=== PATIENT | female | born 1965 | race Caucasian/White ===

== ENCOUNTER 2020-05-30 18:06 | Observation (INO) ==
[2020-05-30] MEDS ORDERED: ONDANSETRON INJ 2 MG/ML 2 ML VIAL IV STA (18:17)
[2020-05-30 18:45] LABS: Basophils # (auto) 0.05 K/uL (0-0.2); Basophils % (auto) 0.2 %; Hemoglobin 11.7 g/dL (12.0-16.0); Immature Granulocytes # (auto) 0.21 K/uL (0.00-0.02); Lymphocytes # (auto) 2.39 K/uL (1.2-3.4); Lymphocytes % (auto) 11.2 %; Mean Corpuscular Hemoglobin 27.3 pg (25-34); Mean Corpuscular Hgb Conc 32.5 g/dL (32-36); Mean Corpuscular Volume 84.1 fL (80-100); Mean Platelet Volume 9.6 fL (7.4-10.4); Monocytes # (auto) 1.81 K/uL (0.11-0.59); Monocytes % (auto) 8.5 %; Neutrophils # (auto) 16.94 K/uL (1.4-6.5); Neutrophils % (auto) 79.1 %; Platelet Count 446 K/uL (130-400); RDW Coefficient of Variation 16.7 % (11.5-14.5); RDW Standard Deviation 51.2 fL (36.4-46.3); Red Blood Count 4.28 M/uL (4.2-5.4)
[2020-05-30 19:01] LABS: Partial Thromboplastin Ratio 0.9; Partial Thromboplastin Time 24.5 Seconds (21.0-31.0); Prothrombin Time 10.6 Seconds (9.0-12.0)
[2020-05-30 19:02] LABS: Alanine Aminotransferase 16 U/L (12-78); Albumin Level 2.9 gm/dl (3.4-5.0); Aspartate Aminotransferase 30 U/L (15-37); BUN Creatinine Ratio 13.6 (10-20); Blood Urea Nitrogen 19 mg/dl (7-18); Carbon Dioxide 29 mmol/L (21-32); Chloride 103 mmol/L (98-107); Creatinine Clr Calc Pharmacy 67.2 ml/min; Est GFR (African American) 49.7; Est GFR (Non-African American) 42.9; Glucose 89 mg/dl (70-99); Magnesium 2.1 mg/dl (1.8-2.4); Potassium 3.2 mmol/L (3.5-5.1); Sodium 139 mmol/L (136-145)
[2020-05-30 19:13] LABS: Albumin Globulin Ratio 0.6 (0.9-2); Alkaline Phosphatase 97 U/L (45-117); Bilirubin,Total < 0.1 mg/dl (0.2-1); Globulin 4.7 gm/dl (2.5-4.0); Total Protein 7.6 gm/dl (6.4-8.2); Troponin I < 0.015 ng/ml (0-0.045)
[2020-05-30] MEDS: MoRPHine SULFATE 4 MG/ML 1 ML CARP\\VIAL IV PRN ×2 (19:18→20:53)
--- NOTE | 2020-05-30 19:24 | XRay Report ---
XR chest 1V portable HISTORY: 55 years-old Female weakness acute weakness COMPARISON: None TECHNIQUE: Portable AP view of the chest FINDINGS: Left subclavian pacer. Cardiomediastinal and hilar silhouettes are within normal limits. Mild interst itial coarsening of the lung bases, possibly on a chronic basis. No pneumothorax, pleural effusion, a irspace consolidation or overt pulmonary edema. Bones of the chest appear grossly intact. IMPRESSION: No acute process. ACT 112: Negative or not required by law. The above report was generated using voice recognition software. It may contain grammatical, syntax o r spelling errors. Electronically signed by: Adonay Van M.D. 05/30/2020 7:23 PM
--- NOTE | 2020-05-30 19:32 | XRay Report ---
XR knee LT 1 or 2V routine HISTORY: 55 years-old Female FALL acute left knee pain status post fall COMPARISON: None TECHNIQUE: 3 views of the left knee FINDINGS: Markedly limited exam secondary to positioning. Severe tricompartmental osteoarthritis. No large join t effusion, acute fracture or dislocation identified. IMPRESSION: 1. Marked limitation of the study secondary to positioning. No acute fracture identified. 2. Severe osteoarthritis. ACT 112: Negative or not required by law. The above report was generated using voice recognition software. It may contain grammatical, syntax o r spelling errors. Electronically signed by: Adonay Van M.D. 05/30/2020 7:30 PM
--- NOTE | 2020-05-30 19:33 | XRay Report ---
XR hip LT 2V w pelvis HISTORY: 55 years-old Female fALL acute pelvic and left hip pain status post fall COMPARISON: Left knee radiographs of same day TECHNIQUE: AP view the pelvis with 2 views of the left hip FINDINGS: Demineralized appearance of the bones. Mild osteoarthritis of the bilateral hips. There is an acute t ranscervical fracture of the left femur which demonstrates approximately 1 cm cortical impaction with out significant displacement. No dislocation. Pelvic basin phleboliths. IMPRESSION: Acute impacted transcervical fracture of the left femur. ACT 112: Negative or not required by law. The above report was generated using voice recognition software. It may contain grammatical, syntax o r spelling errors. Electronically signed by: Adonay Van M.D. 05/30/2020 7:32 PM
--- NOTE | 2020-05-30 20:00 | Emergency Department Note ---
Impression & Plan Closed fracture of left hip, Fall, Hypoglycemia ED Provider Note NAME: RAMON GILES AGE: 55 SEX: F : 1965 ARRIVES VIA: Ambulance INFORMANT: Patient, prehospital personnel ED PROVIDER(S): Artemio Epps DO CHIEF COMPLAINT: Hip pain HPI: The patient is a 55-year-old female who presented to the emergency department for an evaluation of hip pain. The patient states that she was walking in a parking lot when her right leg gave way and she landed onto her left side. The patient already has significant left lower extremity arthritis and has difficulty ambulating because of this. She was unable to put weight onto her left leg. 911 was called and the patient arrived via ambulance. The patient complains of significant pain in the left hip as well as left knee. She denies having any head injury or headache. She denies having any neck pain or back pain. The patient did not lose consciousness. She states the pain is moderate to severe and worsens with any movement or ambulation. She denies having any recent illnesses or fevers. She was recently admitted to the hospital and transferred because she developed respiratory failure and was positive for COVID-19. The patient has been discharged for a short period of time. ROS: See above HPI for pertinent positives & negatives. A total of 10 systems reviewed and were otherwise negative. PAST MEDICAL HISTORY: See Below PAST SURGICAL HISTORY: See Below FAMILY HISTORY: See Below SOCIAL HISTORY: See Below HOME MEDICATIONS: See Below ALLERGIES: See Below VITALS: See Below PHYSICAL EXAMINATION: GENERAL: The patient is awake and alert. The patient is very anxious appearing and appears to be uncomfortable. EYES: The conjunctivae are clear. The pupils are round and reactive. EARS, NOSE, MOUTH AND THROAT: The nose is without any evidence of any deformity. NECK: The neck is nontender and supple. RESPIRATORY: Normal respiratory effort is noted there is no evidence of wheezing rhonchi or rales CARDIOVASCULAR: Regular rate and rhythm noted there no murmurs rubs or gallops normal S1 normal S2. GASTROINTESTINAL: The abdomen is soft. Abdomen is nontender. MUSCULOSKELETAL/EXTREMITIES: The left lower extremity is shortened and flexed at the knee. The patient has pain with any range of motion testing of the left hip. There is shortening of the left leg. There is minimal internal rotation noted. SKIN: Chronic venous stasis changes are noted in both lower extremities. Skin is warm and dry. NEUROLOGIC: Patient is awake alert and oriented x3. MEDICAL DECISION MAKING: The patient is a 55-year-old female who presented to the emergency department after a fall. The patient was walking in a parking lot when she had a fall. She was not feeling well and was found to have hypoglycemia as well. The patient was found to have significant pain in her left hip. This appears to be consistent with a hip fracture that was found on x-ray. I discussed patient's laboratory and radiographic studies with her. I also discussed the x-ray with her. She was treated with IV pain medication in the emergency department. She was reevaluated multiple times. I discussed the patient's condition with the on-call [facility] hospitalist. They have agreed to evaluate the patient in the emergency department for further management and disposition. Triage Nursing notes reviewed. Prior medical records reviewed Vital Signs: reviewed and remarkable for no significant abnormalities Differential diagnosis: Fracture, subluxation, dislocation, contusion, ligamentous injury, neurovascular, compartment syndrome, rhabdomyolysis, as well as other pathologies. ER treatment provided: See below Diagnostics interpreted by me: ECG: EKG was obtained in the emergency department. My interpretation is normal sinus rhythm at 80 bpm. Anterior Q waves were noted. LVH was noted by voltage criteria. No previous tracing was available. Cardiac Monitoring: An order was placed for continuous cardiac monitoring. The monitor shows a rate of 95 bpm with sinus rhythm. Laboratory studies: As stated above and show below. Imaging studies: See below Consultation(s): Dr. Matthews was notified about the patient. He will evaluate the patient in the emergency department. Past Med/Surg History Medical History (Updated 05/30/20 @ 20:48 by Artemio Epps DO) Atrial fibrillation COVID-19 virus infection History of hypoglycemia Surgical History (Updated 05/30/20 @ 20:04 by Artemio Epps DO) History of cholecystectomy History of permanent cardiac pacemaker placement Social History Smoking Status: Never smoker Preferred Language: Tongan Feels Safe at Home: Yes Allergies Allergies Allergy/AdvReac Type Severity Reaction Status Date / Time sulfamethoxazole Allergy Severe Itching Unverified 05/30/20 19:19 [From Bactrim] trimethoprim [From Bactrim] Allergy Severe Itching Unverified 05/30/20 19:19 Home Meds Home Medications Medication Instructions Recorded Confirmed amiodarone [Pacerone] 200 mg PO QAM 05/30/20 05/30/20 bupropion HCl 150 mg PO QAM 05/30/20 05/30/20 furosemide 80 mg PO QAM 05/30/20 05/30/20 octreotide,microspheres 30 mg IM MONTHLY 05/30/20 05/30/20 [Sandostatin LAR Depot] potassium chloride 20 meq PO QAM 05/30/20 05/30/20 pramipexole 0.5 mg PO QAM 05/30/20 05/30/20 pramipexole 0.75 mg PO QPM 05/30/20 05/30/20 spironolactone 25 mg PO QAM 05/30/20 05/30/20 venlafaxine 225 mg PO QAM 05/30/20 05/30/20 Results & Data (ED) Vital Signs Vital Signs - 24 hr 05/30/20 18:17 05/30/20 19:19 Temperature 37.2 C Temperature Source Oral Pulse Rate 81 Pulse Rate [Right Finger] 87 Pulse Rhythm Regular Pulse Strength Normal Respiratory Rate 16 16 Respiratory Effort / Characteristics Non-Labored Respiratory Depth Normal Respiratory Pattern Regular Blood Pressure 115/61 Blood Pressure [Left Arm] 112/62 Blood Pressure Mean 79 Blood Pressure Mean [Left Arm] 78 Blood Pressure Position Lying Pulse Oximetry 98 96 Oxygen Delivery Method Room Air Room Air Sepsis Recent Fever Within 48 Hours No Sepsis New/Unexplained Change in Mental Status N/A Sepsis Action Taken by Nursing No Action Required Home Medications Current Medication List: was personally reviewed by me Laboratory Data Attestation: I reviewed the patient's lab results. Result diagrams: 05/30/20 18:30 05/30/20 18:30 Lab Results 05/30/20 05/30/20 05/30/20 Range/Units 18:30 18:30 18:30 WBC 21.40 H (4.8-10.8) K/uL RBC 4.28 (4.2-5.4) M/uL Hgb 11.7 L (12.0-16.0) g/dL Hct 36.0 L (37-47) % MCV 84.1 (80-100) fL MCH 27.3 (25-34) pg MCHC 32.5 (32-36) g/dL RDW Std Deviation 51.2 H (36.4-46.3) fL RDW Coeff of Samir 16.7 H (11.5-14.5) % Plt Count 446 H (130-400) K/uL MPV 9.6 (7.4-10.4) fL Immature Gran % (Auto) 1.0 % Neut % (Auto) 79.1 % Lymph % (Auto) 11.2 % [place] % (Auto) 8.5 % Eos % (Auto) 0.0 % Baso % (Auto) 0.2 % Neut # (Auto) 16.94 H (1.4-6.5) K/uL Lymph # (Auto) 2.39 (1.2-3.4) K/uL [place] # (Auto) 1.81 H (0.11-0.59) K/uL Eos # (Auto) 0.00 (0-0.5) K/uL Baso # (Auto) 0.05 (0-0.2) K/uL Immature Gran # (Auto) 0.21 H (0.00-0.02) K/uL PT 10.6 (9.0-12.0) Seconds INR 1.0 (0.9-1.1) APTT 24.5 (21.0-31.0) Seconds PTT Ratio 0.9 Sodium 139 (136-145) mmol/L Potassium 3.2 L (3.5-5.1) mmol/L Chloride 103 (98-107) mmol/L Carbon Dioxide 29 (21-32) mmol/L Anion Gap 6.0 (3-11) BUN 19 H (7-18) mg/dl Creatinine 1.39 H (0.6-1.2) mg/dl Est Cr Clr Drug Dosing 67.2 ml/min Est GFR ( Amer) 49.7 Est GFR (Non-Af Amer) 42.9 BUN/Creatinine Ratio 13.6 (10-20) Glucose 89 (70-99) mg/dl Calcium 9.0 (8.5-10.1) mg/dl Magnesium 2.1 (1.8-2.4) mg/dl Total Bilirubin < 0.1 L (0.2-1) mg/dl AST 30 (15-37) U/L ALT 16 (12-78) U/L Alkaline Phosphatase 97 (45-117) U/L Troponin I < 0.015 (0-0.045) ng/ml Total Protein 7.6 (6.4-8.2) gm/dl Albumin 2.9 L (3.4-5.0) gm/dl Globulin 4.7 H (2.5-4.0) gm/dl Albumin/Globulin Ratio 0.6 L (0.9-2) TSH 2.060 (0.300-4.500) uIu/ml COVID-19 Eval Order 05/30/20 Range/Units 20:32 WBC (4.8-10.8) K/uL RBC (4.2-5.4) M/uL Hgb (12.0-16.0) g/dL Hct (37-47) % MCV (80-100) fL MCH (25-34) pg MCHC (32-36) g/dL RDW Std Deviation (36.4-46.3) fL RDW Coeff of Samir (11.5-14.5) % Plt Count (130-400) K/uL MPV (7.4-10.4) fL Immature Gran % (Auto) % Neut % (Auto) % Lymph % (Auto) % [place] % (Auto) % Eos % (Auto) % Baso % (Auto) % Neut # (Auto) (1.4-6.5) K/uL Lymph # (Auto) (1.2-3.4) K/uL [place] # (Auto) (0.11-0.59) K/uL Eos # (Auto) (0-0.5) K/uL Baso # (Auto) (0-0.2) K/uL Immature Gran # (Auto) (0.00-0.02) K/uL PT (9.0-12.0) Seconds INR (0.9-1.1) APTT (21.0-31.0) Seconds PTT Ratio Sodium (136-145) mmol/L Potassium (3.5-5.1) mmol/L Chloride (98-107) mmol/L Carbon Dioxide (21-32) mmol/L Anion Gap (3-11) BUN (7-18) mg/dl Creatinine (0.6-1.2) mg/dl Est Cr Clr Drug Dosing ml/min Est GFR ( Amer) Est GFR (Non-Af Amer) BUN/Creatinine Ratio (10-20) Glucose (70-99) mg/dl Calcium (8.5-10.1) mg/dl Magnesium (1.8-2.4) mg/dl Total Bilirubin (0.2-1) mg/dl AST (15-37) U/L ALT (12-78) U/L Alkaline Phosphatase (45-117) U/L Troponin I (0-0.045) ng/ml Total Protein (6.4-8.2) gm/dl Albumin (3.4-5.0) gm/dl Globulin (2.5-4.0) gm/dl Albumin/Globulin Ratio (0.9-2) TSH (0.300-4.500) uIu/ml COVID-19 Eval Order CovFluRsv at [facility] Administered Medications Morphine Sulfate (Morphine Sulfate 4 Mg/Ml 1 Ml Carp\Vial) 4 mg IV Q30M PRN PRN Reason: Pain Stop: 06/13/20 18:16 Last Admin: 05/30/20 19:18 Dose: 4 mg Documented by: [id number] Discontinued Medications Ondansetron HCl (Ondansetron Inj 2 Mg/Ml 2 Ml Vial) 4 mg IV NOW STA Stop: 05/30/20 18:18 Last Admin: 05/30/20 19:18 Dose: 4 mg Documented by: [id number] Imaging Data Radiologist's Impression: Chest X-Ray 05/30/20 18:17 XR chest 1V portable HISTORY: 55 years-old Female weakness acute weakness COMPARISON: None TECHNIQUE: Portable AP view of the chest FINDINGS: Left subclavian pacer. Cardiomediastinal and hilar silhouettes are within normal limits. Mild interstitial coarsening of the lung bases, possibly on a chronic basis. No pneumothorax, pleural effusion, airspace consolidation or overt pulmonary edema. Bones of the chest appear grossly intact. IMPRESSION: No acute process. ACT 112: Negative or not required by law. The above report was generated using voice recognition software. It may contain grammatical, syntax or spelling errors. Electronically signed by: Adonay Van M.D. 05/30/2020 7:23 PM Hip/Pelvis X-Ray 05/30/20 18:17 XR hip LT 2V w pelvis HISTORY: 55 years-old Female fALL acute pelvic and left hip pain status post fall COMPARISON: Left knee radiographs of same day TECHNIQUE: AP view the pelvis with 2 views of the left hip FINDINGS: Demineralized appearance of the bones. Mild osteoarthritis of the bilateral hips. There is an acute transcervical fracture of the left femur which demonstrates approximately 1 cm cortical impaction without significant displacement. No dislocation. Pelvic basin phleboliths. IMPRESSION: Acute impacted transcervical fracture of the left femur. ACT 112: Negative or not required by law. The above report was generated using voice recognition software. It may contain grammatical, syntax or spelling errors. Electronically signed by: Adonay Van M.D. 05/30/2020 7:32 PM Knee X-Ray 05/30/20 18:17 XR knee LT 1 or 2V routine HISTORY: 55 years-old Female FALL acute left knee pain status post fall COMPARISON: None TECHNIQUE: 3 views of the left knee FINDINGS: Markedly limited exam secondary to positioning. Severe tricompartmental osteoarthritis. No large joint effusion, acute fracture or dislocation iden tified. IMPRESSION: 1. Marked limitation of the study secondary to positioning. No acute fracture identified. 2. Severe osteoarthritis. ACT 112: Negative or not required by law. The above report was generated using voice recognition software. It may contain grammatical, syntax or spelling errors. Electronically signed by: Adnoay Van M.D. 05/30/2020 7:30 PM Discharge Plan Visit Data Chief Complaint: Fall Stated Complaint: FALL, L HIP PAIN, HYPOGLYCEMIA ED Provider: Artemio Epps Discharge Problem: Closed fracture of left hip, Fall, Hypoglycemia Patient Disposition: Being Evaluated by Hospitalist Condition: Good Forms Stand Alone Forms: [facility] Prescriptions Prescriptions: No Action amiodarone [Pacerone] 200 mg tablet 200 mg PO QAM RF: 0 spironolactone 25 mg tablet 25 mg PO QAM RF: 0 potassium chloride 20 mEq tablet,ER particles/crystals 20 meq PO QAM RF: 0 furosemide 80 mg tablet 80 mg PO QAM RF: 0 bupropion HCl 150 mg tablet extended release 24 hr 150 mg PO QAM RF: 0 pramipexole 0.75 mg tablet 0.75 mg PO QPM RF: 0 venlafaxine 225 mg tablet extended release 24hr 225 mg PO QAM RF: 0 pramipexole 0.5 mg tablet 0.5 mg PO QAM RF: 0 Sandostatin LAR Depot 30 mg suspension,extended rel recon 30 mg IM MONTHLY RF: 0 Referrals Referrals: Gilbert Desai D.O. [Primary Care Provider] -
[2020-05-30 21:20] LABS: Influenza A virus by PCR Negative (Neg); Influenza B virus by PCR Negative (Neg); RSV by PCR Negative (Neg); SARS CoV2 RNA(COVID-19) InHosp NEGATIVE (Negative)
--- OUTSIDE RECORDS SUMMARY | 2020-05-30 23:16 | External Medical Summary | Continuity of Care Document ---
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 Start: 16-Jan-2015 Quantity: 270 Refills: 3 Venlafaxine HCl ER 75 MG Oral Capsule Ex tended Release 24 Hour; TAKE 1 CAPSULE DAILY. Start: 16-Jan-2015 Refills: 0 SUMAtriptan Succinate 25 MG Oral Tablet; TAKE 1 TABLET EVERY 2 HOURS NEEDED FOR MIGRAINE. MAXIMUM 8 TABLETS DAILY. Start: 17-Jan-20 15 Refills: 0 Mirapex 0.5 MG Oral Tablet; TAKE 1 TABLET 3 TIMES DAILY. Start: 16-Jan-2015 Refills: 0 SandoSTATIN LAR Depot 30 MG Intramuscula r Kit; INJECT THE CONTENTS OF 1 SYRINGE (30 MG) INTO THE MUSCLE EVERY MONTH Mara Rizzo Start: 13-Nov-2017 Quantity: 3 Refills: 3 Spironolactone 50 MG Oral Tablet; TAKE 1 TABLET TWICE DAILY. Start: 28-Jul-2016 Refills: 0 Furosemide 80 MG Oral Tablet; Take 1 tablet twice a day Start: 28-Jul-2016 Refills: 5 Ferrous Sulfate 324 (65 Fe) MG Oral Tabl et Delayed Release; Take 1 tablet twice daily Start: 28-Jul-2016 Refills: 0 Procedures Procedures not documented Immunizations Influenza On: 12-Dec-2014 Social History - Smoking Status Never smoked tobacco Plan of Treatment Planned Observations Planned Goals not documented Results No Known Results Results not documented
[2020-05-30] MEDS ORDERED: MAGNESIUM HYDROXIDE SUSP 30 ML UDC PO PRN (23:38)
[2020-05-30] MEDS ORDERED: bisacodyL 10 MG SUPP PR PRN (23:38)
[2020-05-30] MEDS ORDERED: ACETAMINOPHEN 325 MG TAB PO PRN (23:38)
[2020-05-30] MEDS ORDERED: POLYETHYLENE (MIRALAX) 17 GM PACK PO PRN (23:38)
[2020-05-30] MEDS ORDERED: NALOXONE HCL 0.4 MG/1 ML VIAL/CARP IV PRN (23:38)
[2020-05-30 23:48] LABS: Appearance Urine Cloudy (Clear); Bacteria Urine Automated 4+ (Negative); Bilirubin Urine Negative (Negative); Blood Urine 3+ (Negative); Color Urine Yellow; Glucose Urine UA Negative (Negative); Ketones Urine Negative (Negative); Leukocyte Esterase Urine 2+ (Negative); Nitrite Urine Negative (Negative); Protein Urine Trace (Negative); RBC Urine Automated >30 /hpf (0-4); Specific Gravity Urine 1.018 (1.000-1.030); Urobilinogen Urine Negative (Negative); WBC Urine Automated >30 /hpf (0-5)
[2020-05-31] MEDS: MoRPHine SULFATE 4 MG/ML 1 ML CARP\\VIAL IV PRN ×4 (00:13→13:14)
[2020-05-31] MEDS ORDERED: MICONAZOLE NITRATE POWDER 43 GM EXT PRN (00:22)
[2020-05-31] MEDS ORDERED: MoRPHine SULFATE 2 MG/ML CARP IV PRN (00:27)
--- NOTE | 2020-05-31 01:03 | History & Physical Report ---
Date of Service May 31, 2020 Assessment & Plan Admission and Anticipated Discharge Date Admission Date: May 30, 2020 55 yo F w/ pMHx. pancreatic masses s/p excision, low blood sugar, prior COVID infection, mood disorder who is presenting after a injury to her left hip found to have a fracture Left hip fracture, transcervical, 1cm cortical impaction, no significant displacement hemodynamically stable discussed with Dr. Weeks and based on patient's BMI and complexity he did not feel comfortable operating on her - may require transfer for possible procedure with a joint specialist at tertiary care vs. obtaining medical records and getting a second opinion - Hip fracture order set used - Morphine for pain control - NPO after midnight Elevated white count likely secondary to stress - continue to monitor Pancreatic mass s/p excision with low blood sugar episodes - monitor blood sugar - attempt to obtain records from PCP (HIM request placed) ? history of atrial fibrillation, not currently on blood thinner - f/u PCP record, Mood disorder - continue Bupropion Code: full Diet: NPO DVT: SCD's History of Present Illness Chief Complaint: left hip pain Primary Care Provider: Gilbert Desai Jalyn Floyd is here for left hip pain. She was standing on her right leg getting into a jeep with her left leg up when her right leg popped, shifted down and she developed pain in the left leg (hip and knee) and was not able to put weight on it. The pain was 7/10 in her knee and hip. This case was discussed with Dr. Weeks and initially he was okay proceeding with possible intervention. After he reviewed the case further he contacted me and explained that based on her unusual case and elevated BMI he did not feel comfortable with performing a surgical intervention here. He thought that she might benefit from a joint specialist at a tertiary care center. She had recently been transferred (January 23) to [facility] for pacer placement and for treatment of COVID where she was intubated. We do not have her records and she follows with Gilbert Desai who is based out of [place]. She also has a history of pancreatic masses that were excised, she did not know specifically what the mass was or the procedure done. 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 She has had episodes of low blood sugar after her pancreas masses were removed, and stated that some were still present. She has Atrial fibrillation on her problem list, she is not on any anticoagulation currently and was in NSR on EKG and regular rhythm on exam. She also brought up a history of vaginal bleeding from polyps with planned procedure in one month. We will need to get her records from her PCP to get more information on her past medical history to help direct management. Allergies Allergy/AdvReac Type Severity Reaction Status Date / Time sulfamethoxazole Allergy Severe Itching Unverified 05/31/20 09:22 [From Bactrim] trimethoprim [From Bactrim] Allergy Severe Itching Unverified 05/31/20 09:22 No Known Drug Allergies Allergy Verified 05/31/20 09:22 Home Medications Medication Instructions Recorded Confirmed Type albuterol sulfate 90 mcg/actuation 2 puff INHALATION Q6H PRN 10/01/19 10/01/19 History aerosol inhaler sumatriptan succinate 50 mg tablet See Rx Instructions PO .COMPLEX 10/01/19 10/01/19 History Sandostatin LAR Depot 30 mg IM MONTHLY 05/30/20 05/30/20 History amiodarone [Pacerone] 200 mg PO QAM 05/30/20 05/30/20 History bupropion HCl 150 mg PO QAM 05/30/20 05/30/20 History furosemide 80 mg PO QAM 05/30/20 05/30/20 History potassium chloride 20 meq PO QAM 05/30/20 05/30/20 History pramipexole 0.5 mg PO QAM 05/30/20 05/30/20 History pramipexole 0.75 mg PO QPM 05/30/20 05/30/20 History spironolactone 25 mg PO QAM 05/30/20 05/30/20 History venlafaxine 225 mg PO QAM 05/30/20 05/30/20 History Past Med/Surg History Medical History (Updated 05/31/20 @ 09:22 by Kaylee Maxwell) Abnormal thyroid function test Atrial fibrillation COVID-19 virus infection History of hypoglycemia Restless leg syndrome Surgical History (Updated 05/31/20 @ 09:22 by Kaylee Maxwell) History of cholecystectomy History of cholecystectomy History of partial pancreatectomy History of permanent cardiac pacemaker placement Family History (System 05/31/20 @ 09:22 by Kaylee Maxwell) Brother Diabetes Sister Diabetes Father Myocardial infarction Mother Dyslipidemia Social History (System 05/31/20 @ 09:22 by Kaylee Maxwell) Smoking Status: Never smoker Hx Alcohol Use: No Hx Substance Use: No Preferred Language: Albanian Communication Ability: Effective Fiscal Economist Required: No Beliefs That Will Affect Care: None Current Living Situation: Alone Current Living Situation Comment: gurdeep stay with her often, discharged from rehab 2 days ago Other Information That Helps Us Care for You: No Feels Safe at Home: Yes Safety Concerns: Feels Safe At This Time Assistive Devices: Glasses, Walker and Wheelchair Review of Systems Review of Systems: unable to obtain due to patient in severe pain. Physical Exam Constitutional: + obese and + in distress Eyes: PERRL, conjunctivae normal, anicteric sclerae ENMT: external ear and nose normal, oropharynx normal Neck: normal visual inspection Respiratory: normal respiratory effort, lungs clear to auscultation Cardiovascular: RRR, no murmur, no edema Gastrointestinal (Abdomen): normal bowel sounds, soft, nontender, no hepatosplenomegaly Musculoskeletal: - pain in left leg from hip down to knee, TTP - pulses and sensation intact distally Skin: no rashes, warm and dry Results & Data Results & Data ([facility]) Vital Signs (Past 12 Hours) Vital Signs Temp Pulse Pulse Resp BP BP BP 05/31/20 00:00 92 H 05/30/20 23:40 36.8 C 91 H 22 124/66 05/30/20 22:59 85 19 105/61 05/30/20 21:26 84 16 101/55 L 05/30/20 19:19 87 16 112/62 05/30/20 18:17 37.2 C 81 16 115/61 Pulse Ox 05/31/20 00:00 05/30/20 23:40 93 05/30/20 22:59 96 05/30/20 21:26 96 05/30/20 19:19 96 05/30/20 18:17 98 CBC Results Results Complete Blood Count Results: RBC 3.98 M/uL (4.2-5.4) L 05/31/20 WBC 17.20 K/uL (4.8-10.8) H 05/31/20 Hgb 10.5 g/dL (12.0-16.0) L 05/31/20 Hct 33.9 % (37-47) L 05/31/20 Plt Count 387 K/uL (130-400) 05/31/20 Chemistry (BMP) Results BMP Results: Sodium 143 mmol/L (136-145) 05/31/20 Potassium 3.9 mmol/L (3.5-5.1) 05/31/20 Chloride 107 mmol/L (98-107) 05/31/20 BUN 20 mg/dl (7-18) H 05/31/20 Creatinine 1.27 mg/dl (0.6-1.2) H 05/31/20 Glucose 51 mg/dl (70-99) L* 05/31/20 Code Status & VTE Plan VTE Prophylaxis Plan VTE Prophylaxis will be ordered: Yes Supervising Physician Co-Signing Physician Notes Attending addendum: I have physically seen this patient, have supervised the medical residents activities, and agree with the H&P unless as otherwise noted. Assessment and Plan: Closed left femur fracture- Patient was initially reported to be acceptable by orthopedic surgery for repair here, but later, after patient has been already admitted, orthopedic surgery felt the patient was of too large of body habitus to be corrected here. Manage the patient's pain with morphine overnight, if not acceptable for surgery here, when to be transferred to tertiary care facility in the a.m. N.p.o. after midnight except essential medications Pancreatic mass, status post excision- Obtaining records as directed Atrial fibrillation/hypertension- Continue amiodarone, furosemide and spironolactone. Follow serial BMP and magnesium levels Mood disorder- Continue bupropion Remaining orders and notations as noted Resident Activity Tracking Resident Involvement: Resident Care Provided Care Provided: Adult Hospital Medicine
[2020-05-31] MEDS ORDERED: GLUCOSE 10 TABS/TUBE PO PRN (03:07)
[2020-05-31] MEDS ORDERED: CARBOHYDRATES FOR HYPOGLYCEMIA PO PRN (03:07)
[2020-05-31] MEDS ORDERED: DEXTROSE 50% 50 ML SYRINGE IV PRN (03:07)
[2020-05-31] MEDS ORDERED: GLUCOSE 40% GEL 15 GM TUBE PO PRN (03:07)
[2020-05-31] MEDS ORDERED: GLUCAGON FOR INJ 1 MG VIAL SQ PRN (03:07)
[2020-05-31 06:26] LABS: Basophils # (auto) 0.04 K/uL (0-0.2); Basophils % (auto) 0.2 %; Hematocrit (blood only) 33.9 % (37-47); Hemoglobin 10.5 g/dL (12.0-16.0); Immature Granulocytes # (auto) 0.07 K/uL (0.00-0.02); Immature Granulocytes % (auto) 0.4 %; Lymphocytes % (auto) 24.4 %; Mean Corpuscular Hemoglobin 26.4 pg (25-34); Mean Corpuscular Volume 85.2 fL (80-100); Mean Platelet Volume 9.7 fL (7.4-10.4); Monocytes # (auto) 1.84 K/uL (0.11-0.59); Monocytes % (auto) 10.7 %; Neutrophils # (auto) 11.05 K/uL (1.4-6.5); Neutrophils % (auto) 64.3 %; Platelet Count 387 K/uL (130-400); RDW Coefficient of Variation 16.7 % (11.5-14.5); RDW Standard Deviation 52.3 fL (36.4-46.3); Red Blood Count 3.98 M/uL (4.2-5.4)
[2020-05-31 06:50] LABS: BUN Creatinine Ratio 15.4 (10-20); Calcium 8.6 mg/dl (8.5-10.1); Est GFR (African American) 55.4; Est GFR (Non-African American) 47.8; Potassium 3.9 mmol/L (3.5-5.1)
[2020-05-31] MEDS ORDERED: D5W AND 1/2NSS 1,000 ML IV SCH (07:45)
[2020-05-31] MEDS ORDERED: FUROSEMIDE 80 MG TAB PO SCH (09:00)
[2020-05-31] MEDS ORDERED: buPROPion XL 150 MG TABCR PO SCH (09:00)
[2020-05-31] MEDS ORDERED: AMIODARONE 200 MG TAB PO SCH (09:00)
[2020-05-31] MEDS ORDERED: POTASSIUM CHLORIDE CRTAB 20 MEQ TABCR PO SCH (09:00)
[2020-05-31] MEDS ORDERED: VENLAFAXINE HCL XR 75 MG CAPXR PO SCH (09:00)
[2020-05-31] MEDS ORDERED: SPIRONOLACTONE 25 MG TAB PO SCH (09:00)
[2020-05-31] MEDS ORDERED: PRAMIPEXOLE DIHYDROCHLO 0.5 MG TAB PO SCH (09:00)
[2020-05-31] MEDS ORDERED: cefTRIAXone SODIUM 2,000 MG in DEXTROSE 5% 50 ML IV ONE (10:00)
--- NOTE | 2020-05-31 13:02 | Electrocardiogram Report ---
Test Reason : Blood Pressure : / mmHG Vent. Rate : 080 BPM Atrial Rate : 080 BPM P-R Int : 158 ms QRS Dur : 102 ms QT Int : 410 ms P-R-T Axes : 038 -37 045 degrees QTc Int : 473 ms Normal sinus rhythm Left axis deviation Minimal voltage criteria for LVH, may be normal variant Abnormal ECG No previous ECGs available Confirmed by Brendan Powell ([id number]) on 05/31/2020 1:01:48 PM Referred By: REFERRED SELF Confirmed By:Lai Powell
--- NOTE | 2020-05-31 13:22 | Discharge Summary ---
Date of Service May 31, 2020 Admission HPI Per Admitting Provider Jalyn Floyd is here for left hip pain. She was standing on her right leg getting into a jeep with her left leg up when her right leg popped, shifted down and she developed pain in the left leg (hip and knee) and was not able to put weight on it. The pain was 7/10 in her knee and hip. This case was discussed with Dr. Weeks and initially he was okay proceeding with possible intervention. After he reviewed the case further he contacted me and explained that based on her unusual case and elevated BMI he did not feel comfortable with performing a surgical intervention here. He thought that she might benefit from a joint specialist at a tertiary care center. She had recently been transferred (January 23) to [facility] for pacer placement and for treatment of COVID where she was intubated. We do not have er records and she follows with Gilbert Desai who is based out of [place]. She also has a history of pancreatic masses that were excised, she did not know specifically what the mass was or the procedure done. 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 She has had episodes of low blood sugar after her pancreas masses were removed, and stated that some were still present. She has Atrial fibrillation on her problem list, she is not on any anticoagulation currently and was in NSR on EKG and regular rhythm on exam. She also brought up a history of vaginal bleeding from polyps with planned procedure in one month. We will need to get her records from her PCP to get more information on her past medical history to help direct management. Admission Exam Per Admitting Provider Constitutional: + obese and + in distress Eyes: PERRL, conjunctivae normal, anicteric sclerae ENMT: external ear and nose normal, oropharynx normal Neck: normal visual inspection Respiratory: normal respiratory effort, lungs clear to auscultation Cardiovascular: RRR, no murmur, no edema Gastrointestinal (Abdomen): normal bowel sounds, soft, nontender, no hepatosplenomegaly Musculoskeletal: - pain in left leg from hip down to knee, TTP - pulses and sensation intact distally Skin: no rashes, warm and dry Principal Diagnosis Left transcervical hip fracture Discharge Exam Constitutional well developed and + morbidly obese; no acute distress Respiratory normal respiratory effort, lungs clear to auscultation Cardiovascular RRR, no murmur, no edema Musculoskeletal NV intact distally Skin no rashes, warm and dry Psychiatric A+Ox3, euthymic affect Discharge Data Allergies Allergy/AdvReac Type Severity Reaction Status Date / Time sulfamethoxazole Allergy Severe Itching Unverified 05/31/20 09:22 [From Bactrim] trimethoprim [From Bactrim] Allergy Severe Itching Unverified 05/31/20 09:22 No Known Drug Allergies Allergy Verified 05/31/20 09:22 Consultations 05/30/20 19:50 ED Decision to Admit Stat 05/31/20 03:00 Consult Health Information Management Routine 05/31/20 07:20 Consult Health Information Management Stat 05/31/20 09:17 Radiology Transfer Of Images Stat Hospital Course (1) Closed fracture of left hip: Jalyn Floyd is a 55 year old female who presents to the ER on May 30, 2020 due to fall on her left side causing a transcervical hip fracture. On re view by orthopedics recommended transfer to [facility] and patient elected to be transferred to [facility]. UA was grossly positive for infection, elevated white blood count and strong urine smell therefore she was given ceftriaxone 2g IV prior to transfer. Patient has been NPO since midnight. On D5W half NSS @80ml/hr prior to transfer. Transferred to [facility] on May 31, 2020. (2) Fall: (3) Hypoglycemia: Total Time Total Time Spent Total Time Spent (In Minutes): 45 Total Time Includes: Examination of the Patient, Discharge Planning, Medication Reconciliation and Communication With Other Providers Discharge Plan Discharge Items Patient Disposition: Transfer Acute Care Hospital Reason For Visit: L HIP FRACTURE Discharge Diagnosis: Left hip fracture Condition on Discharge: Good Activity: As commented below Non-emergency contact: Primary Care Provider Call non-emergency contact if: you have any medication questions and your symptoms worsen Follow-up/Referrals: Gilbert Desai D.O. [Primary Care Provider] - Diet: Other - See Diet Comment Addtl Attending Provider Instructions: Jalyn Floyd is a 55 year old female who presents to the ER on May 30, 2020 due to fall on her left side causing a transcervical hip fracture. On review by orthopedics recommended transfer to [facility] and patient elected to be transferred to [facility]. UA was grossly positive for infection and elevated white blood count therefore she was given ceftriaxone 2g IV prior to transfer, she did note a strong urine smell. Patient has been NPO since midnight. On D5W half NSS prior to transfer. Medication list below is home meds. Please see separate scanned list for hospital medications. Pending Studies at Discharge: Yes Stand-Alone Forms: My [facility] Skilled Items Patient informed of condition?: Yes DNR: No Discharge Level of Care: Other Communicable Disease: No Discharge Prognosis: Stable Lines: Peripheral IV Urinary Catheter: Yes Medications and DC Order Prescriptions: Continued sumatriptan succinate [Imitrex] 50 mg tablet See Rx Instructions PO .COMPLEX RF: 0 albuterol sulfate 90 mcg/actuation HFA aerosol inhaler 2 puff inhalation Q6H PRNRF: 0 amiodarone [Pacerone] 200 mg tablet 200 mg PO QAM RF: 0 spironolactone 25 mg tablet 25 mg PO QAM RF: 0 potassium chloride 20 mEq tablet,ER particles/crystals 20 meq PO QAM RF: 0 furosemide 80 mg tablet 80 mg PO QAM RF: 0 bupropion HCl 150 mg tablet extended release 24 hr 150 mg PO QAM RF: 0 pramipexole 0.75 mg tablet 0.75 mg PO QPM RF: 0 venlafaxine 225 mg tablet extended release 24hr 225 mg PO QAM RF: 0 pramipexole 0.5 mg tablet 0.5 mg PO QAM RF: 0 Sandostatin LAR Depot 30 mg suspension,extended rel recon 30 mg IM MONTHLY RF: 0 Discharge Orders: Discharge Order (Routine); Ordered 05/31/20 Ordered By: Gregory Robbins Admission Data Admit Date/Time: 05/30/20 22:31 Attending Provider: Gregory Robbins Admit Provider: Magdaleno Gaona Primary Care Provider: Gilbert Desai Other Providers: Jose Baca Other Interventions: Discharge Summary Assessment (RN) Last Done: 05/31/20 13:02 Coding Level of Care Code D/C Day Management >30 mins Diagnoses Closed fracture of left hip S72.002A Encounter type: initial encounter Fall W19.XXXA Encounter type: initial encounter Hypoglycemia E16.2
[2020-05-31] MEDS ORDERED: DOCUSATE SODIUM/SENNA 50/8.6MG TAB PO SCH (21:00)
[2020-05-31] MEDS ORDERED: PRAMIPEXOLE DIHYDROCHLO 0.25 MG TAB PO SCH (21:00)
--- NOTE | 2020-06-01 01:46 | Billing Data ---
Date of Service June 01, 2020 Coding Level of Care Code 11431 OBS Care - Level 3
== END 2020-05-31 14:33 | disposition short-term general hospital (02) ==
LOC: EDBD 18:06 → ED 18:06 → 2N 22:31 → INTOOBSV 22:31 → SUATTDRO 22:31 → MERGE 22:31 → 2N 22:59